=== PATIENT | female | born 1965 | race Caucasian/White ===

== ENCOUNTER 2017-08-21 09:39 | Day surgery (SDC) | payer OTHER ==
[2017-08-21] MEDS ORDERED: FENTAnyl 50 MCG/ML VIAL (11:46)
[2017-08-21] MEDS ORDERED: MIDAZOLAM 1 MG/ML 2 ML INJ ×2 (11:46)
== END 2017-08-21 11:43 | disposition home or self-care (01) ==
LOC: GIL 09:39
DX: Z12.11 Encounter for screening for malignant neoplasm of colon (principal); D12.5 Benign neoplasm of sigmoid colon; K64.8 Other hemorrhoids
CPT/HCPCS: 45380; 88305